=== PATIENT | female | born 1955 | race Caucasian/White ===

== ENCOUNTER → 2018-09-01 | Outpatient (CLI) | payer MEDICARE | END | disposition home or self-care (01) | LOC: RAH 09:30 | PROVIDERS: ATTEND Internal Medicine | DX: Z12.31 Encounter for screening mammogram for malignant neoplasm of breast (principal); K76.89 Other specified diseases of liver; R16.0 Hepatomegaly, not elsewhere classified | CPT/HCPCS: 76705; 77067 ==

== ENCOUNTER → 2018-10-02 | Outpatient (CLI) | payer MEDICARE, OTHER | END | disposition home or self-care (01) | LOC: RAH 13:24 | PROVIDERS: ATTEND Internal Medicine | DX: N60.01 Solitary cyst of right breast (principal) | CPT/HCPCS: 76641 ==

== ENCOUNTER → 2020-04-03 | Outpatient (CLI) | payer MEDICARE, OTHER | END | disposition home or self-care (01) | LOC: RAH 10:56 | PROVIDERS: ATTEND Internal Medicine | DX: M50.322 Other cervical disc degeneration at C5-C6 level (principal); M43.22 Fusion of spine, cervical region | CPT/HCPCS: 72040 ==

== ENCOUNTER → 2020-05-14 | Outpatient (CLI) | payer MEDICARE, OTHER | END | disposition home or self-care (01) | LOC: RAH 10:49 | PROVIDERS: ATTEND Internal Medicine | DX: M50.122 Cervical disc disorder at C5-C6 level with radiculopathy (principal); M48.02 Spinal stenosis, cervical region; G89.29 Other chronic pain; M43.22 Fusion of spine, cervical region; G24.9 Dystonia, unspecified | CPT/HCPCS: 72141 ==

== ENCOUNTER → 2020-12-08 | Outpatient (CLI) | payer MEDICARE, OTHER | END | disposition home or self-care (01) | LOC: RAH 10:56 | PROVIDERS: ATTEND Internal Medicine | DX: Z12.31 Encounter for screening mammogram for malignant neoplasm of breast (principal) | CPT/HCPCS: 77067 ==

== ENCOUNTER 2022-05-12 09:33 | Emergency (ER) | payer MEDICARE, OTHER ==
[~2022-05-12] VITALS: Ht 170.2 cm; Wt 76.2 kg
[2022-05-12 09:42] VITALS: BP 132/66
== END 2022-05-12 11:20 | disposition home or self-care (01) ==
LOC: EDH 09:33
DX: G89.29 Other chronic pain (principal); M25.512 Pain in left shoulder; M79.632 Pain in left forearm; I10 Essential (primary) hypertension; Z88.8 Allergy status to other drugs, medicaments and biological substances
CPT/HCPCS: 73030; 73090

== ENCOUNTER → 2022-07-29 | Outpatient (CLI) | payer MEDICARE | END | disposition home or self-care (01) | LOC: RAH 10:00 | DX: M43.22 Fusion of spine, cervical region (principal); M47.812 Spondylosis without myelopathy or radiculopathy, cervical region; G89.29 Other chronic pain; G95.89 Other specified diseases of spinal cord; Z98.890 Other specified postprocedural states | CPT/HCPCS: 72141 ==

== ENCOUNTER → 2024-03-13 | Outpatient (CLI) | payer MEDICARE ==
--- NOTE | 2024-03-13 12:37 | HMCIMG ---
MR SPINAL CANAL, CERV WO CON HISTORY: Radiculopathy COMPARISON: 08/02/2023 TECHNIQUE: MRI of the cervical spine was performed utilizing multiple pulse sequences in axial, coronal and sagittal plane. Patient was not given contrast through intravenous route. FINDINGS: There are motion artifacts degrading the image quality. Orthopedic fixation plates and screws are seen traversing the C4, C5 and C6 with paramagnetic susceptibility artifacts limiting evaluation. No abnormal signal intensity is seen of the visualized bony structure. No loss of vertebral height is seen. There is straightening of normal lordotic cervical curvature which may be related to muscle spasm or positioning. Degenerative disc signals are present at all cervical spine levels. Cerebellar tonsils are in normal position. 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 The cervical cord is of normal signal intensity without cord compression or impingement. At the C3-4 level, there is minimal annular disc bulge causing anterior CSF space effacement with bilateral lateral recess stenosis with minimal neural foraminal stenosis. The central canal measures approximately 6.2 mm in its anterior posterior dimension. At the C4-5 level, there is minimal spondylotic disc causing anterior CSF space effacement with without associated from stenosis. The central canal measures approximately 8.3 mm in its anterior posterior dimension. No other focal disc herniation or neural foraminal stenosis is seen. IMPRESSION: 1. 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 This was seen on previous study grossly unchanged. Postop changes at C4, C5 and C6. Minimal degenerative changes with spondylosis at C3-4 and C4-5 levels as described above.
== END | disposition home or self-care (01) ==
LOC: RAH 11:03
PROVIDERS: ATTEND Internal Medicine
DX: G95.0 Syringomyelia and syringobulbia (principal); M50.122 Cervical disc disorder at C5-C6 level with radiculopathy; M43.22 Fusion of spine, cervical region
CPT/HCPCS: 72141